=== PATIENT | male | born 1975 | race Caucasian/White ===

== ENCOUNTER → 2016-09-15 | Day surgery (SDC) | payer BC ==
[2016-08-31 17:31] LABS: BASO % 0.3 %; BASO ABS # 0.03 K/uL (0-0.2); COMPLETE YES; EOS % 1.4 %; HEMATOCRIT 43.4 % (42-52); IG% 0.2 %; LYMPH ABS # 2.93 K/uL (1.2-3.4); MEAN CORPUSCULAR HEMOGLOBIN 29.8 pg (25-34); MEAN CORPUSCULAR HGB CONC 33.9 g/dl (32-36); MEAN PLATELET VOLUME 10.2 fL (7.4-10.4); MONO % 7.8 %; NEUT % 59.3 %; PLATELET COUNT 372 K/uL (130-400); RED BLOOD COUNT 4.93 M/uL (4.7-6.1); WHITE BLOOD COUNT 9.45 K/uL (4.8-10.8)
[2016-08-31 17:59] LABS: BLOOD UREA NITROGEN 12 mg/dl (7-18); BUN/CREATININE RATIO 11.3 (10-20); CALCIUM 8.6 mg/dl (8.5-10.1); CARBON DIOXIDE 32 mmol/L (21-32); CHLORIDE 107 mmol/L (98-107); GLUCOSE 90 mg/dl (70-99); POTASSIUM 4.1 mmol/L (3.5-5.1); SODIUM 143 mmol/L (136-145)
[2016-09-04 14:05] VITALS: Ht 184.2 cm; Wt 136.4 kg
[~2016-09-15] VITALS: Ht 184.2 cm; Wt 136.4 kg
[~2016-09-15] MED LIST: ATROPINE SULFATE 0.1 MG/ML 5ML SYR IV PRN; BUPIVACAINE/EPINEPHRINE 0.5% MPF 1:200,000 30 ML VIAL ONE; CEFAZOLIN 3000 MG/65 ML D5W IV SCH; DEXAMETHASONE SOD INJ 4 MG/ML VIAL ONE; ENOX40IN SQ; EpHEDrine SULFATE INJ 50 MG/ML AMP IV PRN; FENTANYL CITRATE INJ 50 MCG/1 ML 2 ML VIAL IV PRN; FENTANYL CITRATE INJ 50 MCG/1 ML 2 ML VIAL ONE; GLYCOPYRROLATE INJ 0.2 MG/ML VIAL ONE; HYDROmorphone INJ 1 MG/ML SYR IV PRN; HYDROmorphone INJ 1 MG/ML SYR ONE; INDO50CA97 PO; LACTATED RINGER'S 1000ML 1,000 ML IV SCH; LEVOFLOXACIN 500 MG TAB PO SCH; LIDOCAINE HCL 2% 2 ML VIAL (20MG/ML) ONE; MIDAZOLAM HCL 1 MG/ML 2ML VIAL ONE; NEOSTIGMINE METHYLSULFATE 5 MG/5 ML SYR ONE; ONDANSETRON INJ 2 MG/ML 2 ML VIAL IV PRN; ONDANSETRON INJ 2 MG/ML 2 ML VIAL ONE; OXYCODONE/ACETAMINOPHEN 5-325 TAB PO PRN; PROPOFOL IV EMULSION 10 MG/ML 20 ML VIAL IV ONE; ROCURONIUM BROMIDE 10 MG/ML 5 ML VIAL ONE; SODIUM CHLORIDE 0.9% 1000ML 1,000 ML IV SCH
--- NOTE | 2016-09-15 12:22 | History & Physical Bridge Note ---
H&P Re-Evaluation Bridge Note: I have examined the patient, reviewed the History & Physical and in the interval since the performance of the History & Physical I have noted the following changes of clinical significance: No changes noted
--- NOTE | 2016-09-15 12:24 | Discharge Instructions ---
Discharge Instructions Date of Service September 15, 2016. Visit Reason for Visit: Right Hip Extensive Impingement,M76.11 Discharge Discharge Diagnosis / Problem: same Discharge Goals Goal(s): Decrease discomfort, Improve function Medications Stopped Medications Name(s): na Restart Stopped Medication(s): use scripts as directed Activity Recommendations Activity Limitations: as noted below Lifting Limitations: until after follow-up appointment Exercise/Sports Limitations: until after follow-up appointment May Resume Sexual Activity: after follow-up appointment Shower/Bathe: keep incision dry Driving or Machine Use: Weightbearing Status: Right non-weightbearing Anesthesia . Post Anesthesia Instructions: If you have had General Anesthesia or IV Sedation: * Do not drive today. * Resume driving when surgeon permits. * Do not make important decisions or sign legal documents today. * Call surgeon for: 1. Temperature elevations greater than 101 degrees F. 2. Uncontrollable pain. 3. Excessive bleeding. 4. Persistent nausea and vomiting. 5. Medication intolerance (nausea, vomiting or rash). * For nausea and vomiting use only clear liquids such as: tea, soda, bouillon until nausea subsides, then gradually increase diet as tolerated. * If you have any concerns or questions, call your surgeon's office. If physician is unavailable and it is an emergency, call 911 or go to the nearest emergency room. . Instructions / Follow-Up Instructions / Follow-Up New Medicine: * You will likely be taking one or more of these medicines: 1. Percocet - Take, as directed, when you need it, every four to six hours to control your pain. 2. Iron Sulfate - Take three times each day for the month after surgery to help you replace the blood lost during surgery. 3. Coumadin - Thins your blood to lessen the chance of forming a blood clot. The dose of this is different for each person and is based on your blood tests that are done twice a week. * The most common side effects of pain medicine and iron are nausea and constipation. If nausea or constipation is too much of a problem or if you have any questions about your new medicines or doses, call [facility] at . We will try to help you manage these issues. VERY IMPORTANT TO READ AND REVIEW" Blood Clots and Blood Thinning Medicine: * You are given Coumadin during the immediate post-operative period to lessen the risk of blood clots forming in your legs and/or lungs. Coumadin is usually given for six weeks after surgery. * The prescription is for 2 mg tablets. At discharge, you should understand your dose and take it all at the same time every day, preferably after dinner. * You need to get your blood checked 1 - 2 times per week for six weeks, or as directed. * If your dose needs to change, we will call you. Do not take your medication on the day of the blood test until we call you. * If you don't hear from us after your blood draws, keep taking the same dose. Pain: * The immediate post-operative period after hip replacement surgery is often quite painful. * You are given a prescription for pain medicine. You should take it, as directed, when you need it, especially before physical therapy and before going to bed. Pain that interferes with sleep is very common and can last several months. * You will likely need pain medicine for the first two to four weeks. It will not stop all of the pain. The pain will lessen and as you feel better, you may change to milder pain medicine such as Tylenol. * The most common side effects of pain medicine are nausea and constipation, so don't take more than you need. Physical Therapy: * Follow the "Hip Precautions Instructions." * In some cases, the bilingual social worker at the hospital will arrange to have a therapist come to your house for the first couple of weeks to help you learn these skills. * You need to practice on your own or with the help of a family member as needed. * When you learn these skills, most of the therapy can be done on your own. Home Exercise: * You were shown a series of exercises in the hospital. Do these exercises three to four times each day including the exercises you were shown in physical therapy. Walking: * Get up and walk several times each day. For the first four weeks, try not to stand or walk for more than one hour at a time. If you do stand or walk for more than one hour, you will not hurt anything, but your leg will likely swell. * As you feel comfortable, you may change from the walker or crutches to a cane and then to independent walking. SELF CARE INSTRUCTIONS AFTER TOTAL HIP REPLACEMENT Until the incision and soft tissues around your hip have healed, there is a possibility that the hip prosthesis could dislocate. A. Observe the following precautions to prevent dislocation: 1. Don't bend your hip greater than 90 degrees. 2. Avoid crossing your legs or ankles while standing or lying. 3. Sit with your feet placed 6 inches apart. 4. When sitting, keep your knees below your hips. Sit on a firm surface, avoid deep, soft chairs and couches. Use an elevated toilet seat in the bathroom. 5. Don't bend over at the waist. Use a long handled shoehorn and a sock aid to help you put on your shoes and socks. A supervisor shuttle veneering can help you quill picking machine operator objects that are too high or too low to reach. 6. Keep car riding to a minimum for at least one month after surgery. B. Your balance may be shaky for a while. Use crutches or a walker until directed by your doctor. C. Use hand rails when walking on stairs. D. Wear low heeled shoes with non-slip soles. E. Be sure that your floors are free of things that could trip you - throw rugs , electrical cords, small objects. Avoid wet and waxed floors, especially with crutches and canes. F. Try to walk several times a day with rest periods between. G. Continue with all the exercises taught to you in the hospital. Again, make walking a part of your daily routine. VERY IMPORTANT TO READ AND REVIEW A. Take Coumadin, or Lovenox (blood thinning medications) as directed by your doctor. If you are on Coumadin, have a pro-time (blood test) drawn according to your doctor's instructions. This will tell the doctor how well the Coumadin is thinning your blood. B. There are a few signs you need to watch for after you are home. If you notice any of the followin. Increased severe hip pain. Some pain is expected especially when you exercise. 2. Increased swelling in your leg or knee; pain or swelling of the calf muscle in either lower leg. 3. Any fluid drainage from the incision. 4. Shortness of breath or chest pain. TEDs/Elastic Stockings: * The white elastic stockings help limit swelling and prevent blood clots from forming in your legs. The more you wear them, the more they work. * Wear them for six weeks. Prevention of Infection: * Take antibiotics one hour before any dental cleaning, dental work, urological procedure, gastrointestinal procedure or any invasive surgery in order to prevent your new joint from getting infected. * You may get the antibiotics from the doctor performing the procedure or we will call in a prescription to the pharmacy of your choice. Call the office for a prescription at least 2 days prior to your appointment. Things to Watch For: * Drainage from the incision site that occurs more than one week after your surgery. * Severely increased leg pain or swelling. * Increased redness at the incision site. * Fever above 101 degrees Fahrenheit. * Unusual chest pain or shortness of breath. * Unusual pain or burning with urination. Diet Recommendations Recommended Home Diet: resume previous diet Procedures Procedures Performed: see op note Pending Studies Studies pending at discharge: no Medical Emergencies . Who to Call and When: Medical Emergencies: If at any time you feel your situation is an emergency, please call 911 immediately. . Non-Emergent Contact Non-Emergency issues call your: Specialist Call Non-Emergent contact if: temperature is above 101.5 . . "Provider Documentation" section prepared by Sea Dudley. .
--- NOTE | 2016-09-15 14:18 | [facility] Post Operative Brief Note ---
Immediate Operative Summary Operative Date September 15, 2016. Pre-Operative Diagnosis Right hip Extensive Impingement Post-Operative Diagnosis same Procedure(s) Performed Right Hip Open Anterior Arthrotomy, CAM Resection, Debridement Calcified Labrum Surgeon Dr. Janell Means Digital Archivist Surgeon(s) Dr. Kinza Acuña, Km Jones PA-C Estimated Blood Loss 25cc Findings severe MAN/torn calcified labrum Specimens none Drains none Anesthesia general Complication(s) None Disposition Recovery Room / PACU
--- NOTE | 2016-09-15 14:52 | OPERATIVE REPORT ---
DATE OF OPERATION: 09/15/2016 PREOPERATIVE DIAGNOSIS: Severe femoroacetabular impingement with degenerative disease young patient. POSTOPERATIVE DIAGNOSIS: Same. OPERATION PERFORMED: Arthrotomy, right hip with debridement of Cam resection and debridement of torn calcified labrum and pincer lesion of the right hip with capsular repair. SURGEON: Dr. Dudley. VACUUM CLEANER OPERATOR: Dr. Bryan Bloom. SECOND VACUUM CLEANER OPERATOR: Km Jones PA-C. PERIOPERATIVE SITUATION: Medically cleared male, 41 years old, large habitus who has significant MAN and significant pain of his hip. He has failed conservative management. Options were discussed with him concerning leave alone arthroscopic potential treatment versus open treatment. At this point in time, due to his size and due to the fact that he was a very stiff hip it was elected to proceed with open procedure based on his preference. No guarantees were given based on the fact that he had significant changes on his x-ray and could have numbness about the incision based on this needed anterior incision in the lateral femoral cutaneous nerve region. He also could get a femoral nerve palsy and DVT, etc. OPERATION AND FINDINGS: PROCEDURE: The patient appropriately identified, site verified, 3 grams of Ancef confirmed as being given. The right lower extremity was prepped and draped in usual routine fashion on the sandbag. This allowed the tissues to drape over the side of the table. Using fluoroscopic control, the center of the femoral head was identified and incision made anteriorly from just inferior to the anterior superior iliac spine to the distal femoral neck. Full thickness flaps raised. Care taken to protect any sensory nerves. The tensor fascia femoris was identified. The fascia was then opened over the top of it and the tensor fascia femoris retracted laterally and the rest of the fascia retracted medially. This was then opened and then dissected down to the capsule. Once the fat pad was obtained, it was retracted to try to be preserved as much as possible. Fluoroscopic control revealed the center of the femoral neck. The capsule was then opened. There was a significant amount of fluid. This was evacuated. Some synovitis was debrided. The capsule was then opened in an H. It was immediately cleared. The superior labrum was ossified and already split and torn. There was a missing piece from approximately noon to 3 o'clock. There was a big overhang calcified laterally. This was debrided with osteotome. The Cam lesion was then identified and resected with an osteotome. Once this was done, the flexion did not impinge anymore and internal rotation improved by about 15 degrees, external rotation by about 15 degrees. The wound was then copiously irrigated. The capsule was then closed with #1 Vicryl, subcutaneous layer with 2-0 Vicryl and the fascia of the tensor fascia femoris with 0 Vicryl. Again, the subcutaneous layer with 2-0 Vicryl and the skin was stainless steel clips. Appropriate dressing applied and the patient transferred to recovery room in satisfactory condition having tolerated the procedure well. Estimated blood loss was 25 mL. The patient received about 1000 mL crystalloid during the procedure. The patient will be touchdown to nonweightbearing right lower extremity for 6 weeks. He will be on DVT prophylaxis with Lovenox for a week and indomethacin 75 mg b.i.d. for HO prophylaxis. I attest to the content of the Intraoperative Record and any orders documented therein. Any exceptio ns are noted below.
[2016-09-15 15:23] VITALS: TEMP 36.5
--- NOTE | 2016-09-15 16:04 | Anesthesia Progress Nt - [facility] ---
Anesthesia Post Op Note Date & Time September 15, 2016 at 16:04 Vital Signs Pain Intensity: 5.0 Vital Signs Past 12 Hours Date Time Temp Pulse Resp B/P Pulse Ox O2 Delivery O2 Flow Rate FiO2 09/15/16 15:23 36.5 64 16 105/64 95 Room Air 09/15/16 15:19 36.5 61 10 09/15/16 15:19 61 10 97 09/15/16 15:16 146/79 09/15/16 15:14 62 18 96 09/15/16 15:14 62 18 09/15/16 15:11 151/83 09/15/16 15:09 62 16 09/15/16 15:09 62 16 100 09/15/16 15:06 146/82 09/15/16 15:04 61 9 100 09/15/16 15:04 60 9 09/15/16 15:01 137/63 09/15/16 14:59 64 13 09/15/16 14:59 64 13 96 09/15/16 14:56 120/75 09/15/16 14:54 61 17 09/15/16 14:54 61 17 100 09/15/16 14:51 123/77 09/15/16 14:49 62 19 09/15/16 14:49 62 19 100 09/15/16 14:46 107/83 09/15/16 14:44 61 17 100 09/15/16 14:44 61 17 09/15/16 14:41 142/77 09/15/16 14:39 62 21 100 09/15/16 14:39 62 21 09/15/16 14:36 117/97 09/15/16 14:35 36.7 68 16 120/84 100 Mask 6 09/15/16 14:34 68 21 100 09/15/16 14:34 68 21 09/15/16 12:10 36.6 85 18 144/100 97 Room Air Notes Mental Status: alert / awake / arousable, participated in evaluation Pt Amnestic to Procedure: Yes Nausea / Vomiting: adequately controlled Pain: adequately controlled Airway Patency, RR, SpO2: stable & adequate BP & HR: stable & adequate Hydration State: stable & adequate Anesthetic Complications: no major complications apparent
[2016-09-15 16:16] VITALS: BP 129/82; PULSE 76; O2SAT 97
--- NOTE | 2016-09-15 20:34 | OPERATIVE REPORT ---
DATE OF OPERATION: 09/15/2016 PREOPERATIVE DIAGNOSIS: Right hip femoral acetabular impingement with degenerative disease. POSTOPERATIVE DIAGNOSIS: Right hip same. PROCEDURE: Right hip arthrotomy with debridement of Cam lesion and calcified labrum, and debridement of pinscher lesion with capsular repair. SURGEON: Dr. Dudley. HOSPICE CHAPLAIN: Dr. Swift. SECOND BAG MACHINE TENDER: Km Jones PA-C. HISTORY OF PRESENT ILLNESS: This 41-year-old white male presented to the office with complaints of intractable right hip pain as well as loss of motion. He had tried conservative care measures without success. X-ray and MRI were obtained. He elected to proceed with surgical intervention after being educated about potential risks and outcomes. DESCRIPTION OF PROCEDURE: The patient was taken to the operating room where he was given general anesthetic. He was prepped and draped in the usual sterile fashion. Please see Dr. Dudley's operative report for specifics of the procedure. I was present for the entire case from initial patient positioning through final wound closure. Assistance was provided in patient positioning, tissue retraction, hemostasis, and final wound closure. The patient was taken to the recovery room in satisfactory condition. I attest to the content of the Intraoperative Record and any orders documented therein. Any exceptio ns are noted below.
== END | disposition home or self-care (01) ==
LOC: X.SURG 12:00 → MERGE 13:30
PROVIDERS: ATTEND Physical Medicine & Rehabilitation Sports Medicine
DX: M25.851 Other specified joint disorders, right hip (principal); E66.9 Obesity, unspecified; M19.90 Unspecified osteoarthritis, unspecified site

== ENCOUNTER → 2016-10-26 | Outpatient (CLI) | payer BC ==
[~2016-10-26] MED LIST changes: -ATROPINE SULFATE 0.1 MG/ML 5ML SYR IV PRN; -BUPIVACAINE/EPINEPHRINE 0.5% MPF 1:200,000 30 ML VIAL ONE; -CEFAZOLIN 3000 MG/65 ML D5W IV SCH; -DEXAMETHASONE SOD INJ 4 MG/ML VIAL ONE; -EpHEDrine SULFATE INJ 50 MG/ML AMP IV PRN; -FENTANYL CITRATE INJ 50 MCG/1 ML 2 ML VIAL IV PRN; -FENTANYL CITRATE INJ 50 MCG/1 ML 2 ML VIAL ONE; -GLYCOPYRROLATE INJ 0.2 MG/ML VIAL ONE; -HYDROmorphone INJ 1 MG/ML SYR IV PRN; -HYDROmorphone INJ 1 MG/ML SYR ONE; -LACTATED RINGER'S 1000ML 1,000 ML IV SCH; -LEVOFLOXACIN 500 MG TAB PO SCH; -LIDOCAINE HCL 2% 2 ML VIAL (20MG/ML) ONE; -MIDAZOLAM HCL 1 MG/ML 2ML VIAL ONE; -NEOSTIGMINE METHYLSULFATE 5 MG/5 ML SYR ONE; -ONDANSETRON INJ 2 MG/ML 2 ML VIAL IV PRN; -ONDANSETRON INJ 2 MG/ML 2 ML VIAL ONE; -OXYCODONE/ACETAMINOPHEN 5-325 TAB PO PRN; -PROPOFOL IV EMULSION 10 MG/ML 20 ML VIAL IV ONE; -ROCURONIUM BROMIDE 10 MG/ML 5 ML VIAL ONE; -SODIUM CHLORIDE 0.9% 1000ML 1,000 ML IV SCH
== END | disposition home or self-care (01) ==
LOC: C.RDSM 15:15
PROVIDERS: ATTEND Physical Medicine & Rehabilitation Sports Medicine
DX: M25.851 Other specified joint disorders, right hip (principal)

== ENCOUNTER → 2016-12-14 | Outpatient (CLI) | payer BC | END | disposition home or self-care (01) | LOC: C.RDSM 13:08 | PROVIDERS: ATTEND Physical Medicine & Rehabilitation Sports Medicine | DX: M76.11 Psoas tendinitis, right hip (principal) ==

== ENCOUNTER → 2017-05-24 | Outpatient (CLI) | payer BC ==
[~2017-05-24] MED LIST changes: -ENOX40IN SQ
== END | disposition home or self-care (01) ==
LOC: C.RDSM 15:50
PROVIDERS: ATTEND Physical Medicine & Rehabilitation Sports Medicine
DX: M76.11 Psoas tendinitis, right hip (principal)